=== PATIENT | male | born 1995 | race Caucasian/White ===

== ENCOUNTER 2025-04-08 11:53 | Emergency (ER) | payer BC, SELFPAY ==
--- OUTSIDE RECORDS SUMMARY | 2025-04-08 11:55 | XMS_ITS | Clinical Summary ---
Author Organization [facility] Address [address], [place] [address] Care Team Providers Care Home Mortgage Disclosure Act Specialist Name Role Phone Wyatt Mobley MD Primary Care Provider [phone] Source Comments You are receiving this document as you are listed as the primary care provider,follow-up provider, or the patient has been referred to you for consultation.This is in compliance with the Medicare and[facility] Incentive Program,which states Providers who transition their patient to another setting of careor provider of care or refers their patient to another provider of care shouldprovide summary care record for each transition of care or referral. [employer] Allergies Active Allergy Reactions Criticality Noted Date Comments Amoxicillin 10/27/2002 PN: LW Reaction: Rash, Generalized Medications * This document contains information received from the source organization and may not represent a complete record from that organization. No known medications Active Problems Problem Noted Date Diagnosed Date Concussion 06/09/2012 Immunizations Immunization Administration Dates Next Due DTP-Hib (Tetramune) 1996,1996,1995 DTaP 10/09/2001,07/01/1997 DTaP/Hib 1996,1996,1996 HepB, Unspecified Formulation 04/13/2002, 002,10/09/2001 Hib (ActHIB) 07/01/1997 IPV (Polio) 10/09/2001 MMR 11/11/2001,07/01/1997 OPV, Trivalent (Orimune or tOPV) 1996,06/26,1996 TDAP (BOOSTRIX) 02/11/2008 Td (7+ yrs) 12/10/2019 Varicella 02/11/2008,07/01/1997 Family History Medical History Relation Name Comments Anesthesia Reaction Negative Family History Broken Bones Negative Family History Cancer Negative Family History Clotting Disorder Negative Family History Diabetes Negative Family History Heart Disease Negative Family History Osteoporosis Negative Family History Rheumatologic Disease Negative Family History Social History Tobacco Use Types Packs/Day Years Used Date Smoking Tobacco: Never Smokeless Tobacco: Never Alcohol Use Standard Drinks/Week Comments Yes 1 (1 standard drink = 0.6 oz pur e alcohol) PHQ-2 Answer Date Recorded PHQ-2 Score 0 12/10/2019 Sex and Gender Information Value Date Recorded Sex Assigned at Not on file Legal Sex Male 4:56 AM CDT Gender Identity Not on file Sexual Orientation Not on file Last Filed Vital Signs Vital Sign Reading Time Taken Comments Blood Pressure 116/74 12/10/2019 8:27 AM CDT Pulse 60 12/10/2019 8:27 AM CDT Temperature 36.3 C (97.3 F) 05/29/2014 9:17 AM CDT Respiratory Rate 16 05/29/2014 9:17 AM CDT Oxygen Saturation 97% 05/29/2014 9:17 AM CDT Inhaled Oxygen Concentration - - Weight 82.3 kg (181 lb 8 oz) 12/10/2019 8:27 AM CDT Height 174 cm (5' 8.5) 06/09/2012 9:55 AM CDT Body Mass Index - - Plan of Treatment Health Maintenance Due Date Last Done Comments Hep C Screening (Preventive Services) 1996 HIV Screening (Preventive Services) 2012 Adult Preventive Visit 2014 COVID-19 Vaccine ( season) 2024 Influenza Vaccine (#1) 2025 DTaP/Tdap/Td Vaccine (8 - Tdap) 12/09/2029 12/10/2019, 02/11/2008, 10/09/2001, Additional history exists Zoster/Shingles Vaccine (1 of 2) 2046 Hib Vaccine Completed 07/01/1997, 08/26, 1996, Additional history exists IPV (Polio) Vaccine Completed 10/09/2001, 1996, 1996, Additional history exists HepB Vaccine Completed 04/13/2002, 10/24, 10/09/2001 Varicella Vaccine Completed 02/11/2008, 07/01/1997 HPV Vaccine Aged Out No longer eligi ble based on patient's age to complete this topic HepA Vaccine Aged Out No longer eligi ble based on patient's age to complete this topic MCV4 Vaccine Aged Out No longer eligi ble based on patient's age to complete this topic Meningococcal B Vaccine Aged Out No l onger eligible based on patient's age to complete this topic Pneumococcal Vaccine Aged Out No long er eligible based on patient's age to complete this topic Insurance [facility] Care Teams Home Mortgage Disclosure Act Specialist Relationship Specialty Start Date End Date Wyatt Mobley MD [address] [place] [address] PCP - General 11/26/10
[2025-04-08 12:11] VITALS: BP 122/72; PULSE 97; RESP 16; TEMP 38.8; O2SAT 96; BMI 29.5
[2025-04-08 13:20] LABS: PCR FLU A Negative PCR FLU A (Negative); PCR FLU B Negative PCR FLU B (Negative); PCR RSV Negative PCR RSV (Negative); SARS PCR* Negative SARS-CoV-2 (Negative)
--- NOTE | 2025-04-08 14:12 | ED_ITS ---
HPI - General Adult General Date Seen: 04/08/25 Chief complaint: Abdominal Pain Stated complaint: Fever, abdominal pain, vomiting Time Seen by Provider: 04/08/25 14:11 History of Present Illness HPI narrative: 30-year-old gentleman presenting to the ER today for fever, generalized weakness, abdominal pain, vomiting. Per medical record, he was seen in the urgent care yesterday. According to that note he had a fever up to 102.8 along with headache, fatigue, and chills at home. Labs yesterday showed sodium 137, potassium 3.5, chloride 99, bicarb 24, BUN 15, creatinine 1.0, glucose 119, ionized calcium 1.19, white blood cell count 9.2, hemoglobin 16.7. Diagnosed with viral syndrome. Per the patient, he actually says that his symptoms began Saturday evening, 2 nights ago with fever, chills, body aches, headache. Those with symptoms he does having yesterday. Beginning yesterday evening he also developed GI symptoms with nausea, dry heaving. He has had many episodes of watery liquidy brown diarrhea. No bloody or mucousy stool. Overnight his fever went higher again up to 103.8. He has been trying to drink fluids and stay hydrated but whenever he drinks anything it tends to ?go right through him? and leads to diarrhea. He is not really keeping fluids in his body. As result he is having less urine output than normal. He has ongoing fever. He took ibuprofen prior to arrival for temperature up to 102.8 today. He is not having any cough. No sore throat. No trouble breathing. Prior to getting dehydrated urination have been normal. No rashes. No recent travel or camping. No known suspicious food exposure. No recent antibiotics. No history of colitis or autoimmune GI problems. No previous abdominal surgeries. Related Data Home Medications ?Medication ?Instructions ?Recorded ?Confirmed ibuprofen PO PRN 04/07/25 04/07/25 Previous Rx's ?Medication ?Instructions ?Recorded ciprofloxacin HCl 500 mg tablet 500 mg PO BID #20 tabs 04/08/25 (Cipro) loperamide 2 mg capsule 2 mg PO Q4H PRN loose stool #14 04/08/25 caps metronidazole 500 mg tablet 500 mg PO TID #30 tabs ondansetron 4 mg disintegrating 4 mg PO Q8H PRN nausea and 04/08/25 tablet vomiting #10 tabs Allergies Allergy/AdvReac Type Severity Reaction Status Date / Time amoxicillin Allergy Verified 04/08/25 12:17 Exam Narrative: Exam Narrative: Constitutional: Appears well-developed and well-nourished. Alert. Conversant. Non toxic. HENT: Head: Atraumatic. Nose: Nose normal. Mouth/Throat: Oral mucosa is clear but dry. Not desiccated or cracked. no trismus. Pharynx normal. Tonsils symmetric. No tonsillar enlargement, erythema, or exudate. Eyes: Conjunctivae normal. EOM normal. Pupils equal, round, and reactive to light. No scleral icterus. Neck: Normal range of motion. Neck supple. No tracheal deviation present. Cardiovascular: Normal rate, regular rhythm. No gallop. No friction rub. No murmur heard. Symmetric radial artery pulses Pulmonary/Chest: Effort normal. No stridor. No respiratory distress. No wheezes. No rales. No rhonchi . No tenderness. Abdominal: Soft. Bowel sounds normal. No distension. No mass. Right lower quadrant> left lower quadrant and suprapubic tenderness. Also mild periumbilical tenderness. No rebound. No guarding. Musculoskeletal: RUE: Normal range of motion. No tenderness. No deformity LUE: Normal range of motion. No tenderness. No deformity RLE: Normal range of motion. No edema. No tenderness. No deformity LLE: Normal range of motion. No edema. No tenderness. No deformity Neurological: Alert and oriented to person, place, and time. Normal strength. CN II-VII intact. No sensory deficit. GCS eye subscore is 4. GCS verbal subscore is 5. GCS motor subscore is 6. Normal coordination Skin: Skin is warm and dry. No rash noted. No pallor. Normal capillary refill. Psychiatric: Normal mood. Normal affect. Const: Vital Signs, click to edit/add: Vital Signs - 24 hr 04/08/25 12:11 04/08/25 14:16 Temperature 101.9 F H 98.8 F Pulse Rate [Pulse Oximeter] 97 87 Respiratory Rate 16 20 Blood Pressure [Ri ght Upper Arm] 122/72 114/68 Pulse Oximetry 96 94 Oxygen Delivery Me thod Room Air Room Air Course Course ED Course: Recheck-feeling better after fluids and nausea meds. Still having some cramping but tolerable and feels comfortable managing at home. Vital Signs Vital signs: Initial Vital Signs Temperature 101.9 F H 04/08/25 12:11 Temperature Source Temporal Artery Scan 04/08/25 12:11 Pulse Rate 97 04/08/25 12:11 Respiratory Rate 16 04/08/25 12:11 Blood Pressure 122/72 04/08/25 12:11 Blood Pressure Mean 88 04/08/25 12:11 Blood Pressure Position Sitting 04/08/25 12:11 Pulse Oximetry 96 04/08/25 12:11 Oxygen Delivery Method Room Air 04/08/25 12:11 Vital Signs Temperature 101.9 F H 04/08/25 12:11 Pulse Rate 97 04/08/25 12:11 Respiratory Rate 16 04/08/25 12:11 Blood Pressure 122/72 04/08/25 12:11 Pulse Oximetry 96 04/08/25 12:11 Oxygen Delivery Method Room Air 04/08/25 12:11 Temperature 98.8 F 04/08/25 14:16 Pulse Rate 87 04/08/25 14:16 Respiratory Rate 20 04/08/25 14:16 Blood Pressure 114/68 04/08/25 14:16 Pulse Oximetry 94 04/08/25 14:16 Oxygen Delivery Method Room Air 04/08/25 14:16 Medications Administered Medications: Generic Name Dose Route Start Last Admin Trade Name Freq PRN Reason Stop Dose Admin Loperamide HCl 4 mg 04/08/25 14:25 04/08/25 15:03 Loperamide Hcl 2 Mg Capsule PO 4 mg ONCE PRN Administration Discontinued Medications Generic Name Dose Route Start Last Admin Trade Name Freq PRN Reason Stop Dose Admin Sodium Chloride 1,000 mls @ 1,000 mls/hr 04/08/25 14:30 04/08/25 15:58 0.9 % Sodium Chloride 1000 Ml IV 04/08/25 15:29 Infused .Q1H HELLEN Infusion Ondansetron HCl 4 mg 04/08/25 14:25 04/08/25 15:03 Ondansetron 2 Mg/Ml Inj IVP 04/08/25 14:26 4 mg ONCE ONE Administration Medical Decision Making MDM Narrative Medical decision making narrative: This patient presents with fever, myalgias, headache, and GI symptoms most prominently diarrhea but also some nausea.. He does have a fairly high fever up to 103 F. He has not had any bloody mucousy stool or any known specific exposures such as travel or camping. No recent antibiotics. However I have concern for possible bacterial enteritis. I have ordered stool culture and C diff and these results are pending at the time of this dictation. Because of fever and abdominal tenderness we did obtain CT scan which does show fairly significant colitis affecting the ascending and part of the descending colon. These skipped lesions also raise concern for possible inflammatory bowel disease. At this point no acute surgical emergency, perforation, abscess, obstruction. I don't see any evidence for appendicitis, bowel obstruction, abscess, bowel perforation, or other surgical emergency. Start the patient on empiric antibiotics for potential infectious colitis. Will start Cipro and Flagyl empirically. Labs show no concerning electrolyte disturbance or renal failure. After meds given the patient is feeling better. At this point, the patient is non-septic appearing and well hydrated.I think the patient can be managed as an outpatient. We have discussed oral rehydration strategies. They understand and can perform the needed interventions at home. I have provided a prescription for antiemetics to facilitate oral hydration (Zofran 0 DT, Imodium). We have discussed the signs and symptoms of worsening dehydration. They understand the need for immediate reevaluation if any of these symptoms occur. They are also directed to obtain close outpatient follow up within 2-3 days. Lab Data Labs: Lab Results 04/08/25 04/08/25 Range/Units 14:45 Unknown WBC 11.81 H (4.50-11.00) K/uL RBC 5.40 (4.30-5.90) m/uL Hgb 15.9 (13.5-17.5) gm/dL Hct 45.3 (37.0-53.0) % MCV 84 (80-100) fL MCH 29 (26-34) pg MCHC 35 (32-36) gm/dL RDW Coeff of Sarah 11.7 (11.5-15.5) % Plt Count 236 (140-440) K/uL Neut % (Auto) 89.4 H (42.0-72.0) % Lymph % (Auto) 4.8 L (20-44) % [place] % (Auto) 5.6 (0.0-11.0) % Eos % (Auto) 0.0 (0.0-7.0) % Baso % (Auto) 0.1 (0.0-3.0) % Neut # (Auto) 10.60 H (1.7-7.0) K/uL Lymph # (Auto) 0.60 L (0.90-2.90) K/uL [place] # (Auto) 0.70 (0.00-0.90) K/UL Eos # (Auto) 0.00 (0.00-0.50) K/uL Baso # (Auto) 0.00 (0.00-0.30) K/uL Abs Immat Gran (auto) 0.00 (0.00-0.30) K/uL Imm/Tot Granulo (auto) 0.1 % Sodium 133 L (135-149) mmol/L Potassium 3.5 L (3.6-5.1) mmol/L Chloride 100 (96-114) mmol/L Carbon Dioxide 26 (20-32) mmol/L Anion Gap 7 (7-15) mEq/L BUN 12 (5-24) mg/dL Creatinine 0.9 (0.5-1.5) mg/dL Estimated Creat Clear 121.11 Estimated GFR 119 ml/min Glucose 108 (60-115) mg/dL Calcium 9.1 (8.4-10.6) mg/dL Total Bilirubin 1.2 (0.1-1.5) mg/dL AST 29 (12-35) U/L ALT 27 (4-50) U/L Alkaline Phosphatase 64 (40-150) U/L C-Reactive Protein 18.7 H (0.5-1.0) mg/dL Total Protein 7.0 (6.0-8.3) g/dL Albumin 4.1 (3.3-5.0) g/dL Lipase 39 (23-300) U/L SARS-CoV-2 (PCR) Negative SARS-CoV-2 (Negative) Influenza Type A (PCR) Negative PCR FLU A (Negative) Influenza Type B (PCR) Negative PCR FLU B (Negative) RSV (PCR) Negative PCR RSV (Negative) Imaging Data CT scan - abdomen: Attestation: I have reviewed the pertinent imaging results. Radiologist's impression: IMPRESSION: 1. Circumferential wall thickening, hyperemia and adjacent stranding involving the ascending colon. Prominent right lower quadrant mesenteric associated lymph nodes. Mild circumferential wall thickening and hyperemia of a portion of the distal most descending colon. Mild hyperemia the sigmoid and rectum. Constellation of findings favor pancolitis of infectious or inflammatory origins, including organisms such as c diff colitis or Crohn`s. 2. No focal drainable fluid collection. Discharge Plan Discharge Clinical Impression: Colitis, Diarrhea, Dehydration Patient Disposition: Home, Self-Care Condition: Stable Instructions: Acute Nausea and Vomiting (DC), Colitis (ED) Additional Instructions: As we discussed, please come back to the ER right away if you have worsening symptoms, especially if you have worsening uncontrolled diarrhea, bloody stool, weakness, uncontrolled vomiting or dehydration, or worsening pain. We can see on your CT scan that you do have inflammation of your large intestine , called ?colitis?. Because of the colitis is not clear at this time. This could be an infection. Your stool results will come back in 1-2 days to let us know if there is an infection. However we are going to start you on antibiotics today for potential bacterial infection of your colon. It is also possible your colitis could be related to an immune system problem such as Crohn's disease. It is very important for you to follow-up with her regular doctor for recheck within the next 5-7 days. You can see schedule follow-up with any primary care provider of your choice. If she would like to see the [facility] primary care clinic you could call [phone] Prescriptions: New ciprofloxacin HCl [Cipro] 500 mg tablet 500 mg PO BID Qty: 20 0RF loperamide 2 mg capsule 2 mg PO Q4H PRN (Reason: loose stool) Qty: 14 0RF Rx Instructions: do not exceed 16 mg per 24 hrs metronidazole 500 mg tablet 500 mg PO TID Qty: 30 0RF ondansetron 4 mg tablet,disintegrating 4 mg PO Q8H PRN (Reason: nausea and vomiting) Qty: 10 0RF No Action ibuprofen PO PRN Follow Up/Referrals: Provider,Not a Local [Primary Care Provider, Family Practice] Stand Alone Forms: [employer] Info Instructions
[2025-04-08 14:16] VITALS: BP 114/68; PULSE 87; RESP 20; TEMP 37.1; O2SAT 94
--- NOTE | 2025-04-08 14:25 | CRLHL7_ITS ---
For Patients: As a result of the Century Cures Act, medical imaging exams and procedure reports are released immediately into your electronic medical record. You may view this report before your referring provider. If you have questions, please contact your health care provider. INDICATION: ABD PAIN, DIARRHEA, STARTED LAST NIGHT, CRAMPING INTO STOMACH TECHNIQUE: CT abdomen and pelvis acquired with 98 cc Isovue 370 IV contrast. COMPARISON: None. FINDINGS: Lower chest: The visualized lower lungs are aerated. No pleural or pericardial effusion. ABDOMEN: Liver: Normal enhancement. No focal suspicious hepatic lesions. Gallbladder and biliary: Normal gallbladder without radiopaque stone. Normal caliber bile ducts. Spleen: Normal size and enhancement. Pancreas: Normal enhancement without peripancreatic inflammatory changes or ductal dilatation. Adrenal glands: Normal adrenal glands. Kidneys and ureters: Normal enhancement. No radio-opaque calculi. No hydroureteronephrosis. GI tract: The stomach is relatively decompressed. Normal caliber small and large bowel loops. Normal appendix. Circumferential wall thickening, hyperemia and adjacent stranding involving the ascending colon. Prominent right lower quadrant mesenteric associated lymph nodes. Mild circumferential wall thickening and hyperemia of a portion of the distal most descending colon. Mild hyperemia the sigmoid and rectum. Vascular structures: Normal caliber abdominal aorta. Lymph nodes: No lymphadenopathy in the abdomen or pelvis by size criteria. Peritoneum: Small amount free fluid within the pelvis. No free air or focal drainable collection. PELVIS: Genitourinary system: Urinary bladder is decompressed. Normal-sized prostate. SKELETAL STRUCTURES AND SOFT TISSUES: Right sternalis muscle. IMPRESSION: 1. Circumferential wall thickening, hyperemia and adjacent stranding involving the ascending colon. Prominent right lower quadrant mesenteric associated lymph nodes. Mild circumferential wall thickening and hyperemia of a portion of the distal most descending colon. Mild hyperemia the sigmoid and rectum. Constellation of findings favor pancolitis of infectious or inflammatory origins, including organisms such as c diff colitis or Crohn`s. 2. No focal drainable fluid collection. Please note that all CT scans at this facility use dose modulation, iterative reconstruction, and/or weight-based dosing when appropriate to reduce radiation dose to as low as reasonably achievable. Dictated by Edvin Palencia MD @ 04/08/2025 4:02:26 PM (Electronically Signed)
[2025-04-08 15:00] LABS: Hematocrit 45.3 % (37.0-53.0); Hemoglobin* 15.9 gm/dL (13.5-17.5); Immature Granulocytes Pct Auto 0.1 %; Mean Corpuscular HGB Conc 35 gm/dL (32-36); Mean Corpuscular Hemoglobin 29 pg (26-34); Mean Corpuscular Volume 84 fL (80-100); RDW Coefficient of Variation % 11.7 % (11.5-15.5); Red Blood Count 5.40 m/uL (4.30-5.90); White Blood Count* 11.81 K/uL (4.50-11.00)
[2025-04-08] MEDS: ONDANSETRON 2 MG/ML inj 4 MG IVP (15:03)
[2025-04-08] MEDS: LOPERAMIDE HCL 2 MG CAPSULE 4 MG PO (15:03)
[2025-04-08 15:12] LABS: Albumin* 4.1 g/dL (3.3-5.0); Chloride* 100 mmol/L (96-114)
[2025-04-08 15:13] LABS: Potassium* 3.5 mmol/L (3.6-5.1); Sodium* 133 mmol/L (135-149)
[2025-04-08 15:15] LABS: Alanine Aminotransferase* 27 U/L (4-50); Aspartate Amino Transferase* 29 U/L (12-35); Blood Urea Nitrogen* 12 mg/dL (5-24); Creatinine* 0.9 mg/dL (0.5-1.5); Est. Creatinine Clearance* 121.11; Estimated Glomerular Filt Rate 119 ml/min; Immature Granulocytes Abs Auto 0.00 K/uL (0.00-0.30); Lymphocytes Absolute Auto 0.60 K/uL (0.90-2.90); Slide Review Reflex No
[2025-04-08 15:16] LABS: Alkaline Phosphatase* 64 U/L (40-150); Anion Gap 7 mEq/L (7-15); Bilirubin Total* 1.2 mg/dL (0.1-1.5); Calcium* 9.1 mg/dL (8.4-10.6); Carbon Dioxide* 26 mmol/L (20-32); Glucose* 108 mg/dL (60-115); Total Protein* 7.0 g/dL (6.0-8.3)
[2025-04-08 17:53] LABS: C.Difficile Negative (Negative); CDIFFEPI 027 PRESUMPTIVE NEGATIVE (Negative)
== END 2025-04-08 17:02 | disposition home or self-care (01) ==
PROVIDERS: Emergency Provider Emergency Medicine
DX: K52.9 Noninfective gastroenteritis and colitis, unspecified (principal); E86.0 Dehydration
CPT/HCPCS: 36415; 74177; 80048; 80053; 83690; 83789; 85025; 86140; 87045; 87046; 87427; 87493; 87631; 96374; 99283; 99284; 99285; A9270; J2405; J7030; Q9967